=== PATIENT | male | born 1985 | race African-American/Black ===

== ENCOUNTER → 2016-09-08 | Outpatient (REF) | payer OTHER | LOC: M SFHCLERA 16:54 | PROVIDERS: ATTEND Family Medicine | DX: N45.1 Epididymitis (principal) ==

== ENCOUNTER → 2016-10-07 | Outpatient (CLI) | payer OTHER ==
--- NOTE | 2016-10-08 06:00 | REP ---
Clinical: Testicular pain. Technique: Medley scale and color Doppler evaluation using linear and curved array transducer with color Doppler evaluation. Findings: The testicles and epididymi are relatively normal in contour, size, echogenicity, vascularity and overall appearance/contour. There is no evidence for intratesticular mass lesion, infectious/inflammatory process, with torsion. No obvious hydroceles or varicoceles are identified. Right testicle measures 4.2 x 2.1 x 3.0 cm. Left testicle measures 4.2 x 2.2 x 3.0 cm. Impression: Normal scrotal ultrasound. Signed by Maik Anand MD 10/08/2016 05:51 A
== END ==
LOC: M RAD 16:29
PROVIDERS: ATTEND Family Medicine
DX: N50.819 Testicular pain, unspecified (principal)

== ENCOUNTER 2016-10-21 11:07 | Emergency (ER) | payer OTHER ==
[~2016-10-21] VITALS: Ht 185.4 cm; Wt 91.2 kg
[2016-10-21] MEDS ORDERED: ADV250INH INH (11:14)
[2016-10-21] MEDS ORDERED: ZOFR20TA PO (11:14)
[2016-10-21] MEDS ORDERED: MORPHINE 4 MG/ML 1ML SYRINGE IV ONE (12:30)
[2016-10-21] MEDS ORDERED: NS 1,000 ML IV ONE (12:30)
[2016-10-21] MEDS ORDERED: ONDANSETRON 4MG/2ML VIAL (J2405) IV ONE (12:30)
[2016-10-21 13:59] LABS: ALBUMIN 3.8 GM/DL (3.2-5.2); ALBUMIN/GLOBULIN RATIO 0.95 (1.00-1.93); ALKALINE PHOSPHATASE 79 U/L (45-117); ALT/SGPT 28 U/L (12-78); AMYLASE 61 U/L (25-115); ANION GAP 4 MEQ/L (8-16); AST/SGOT 19 U/L (15-37); BILIRUBIN,TOTAL 0.3 MG/DL (0.2-1.0); BLOOD UREA NITROGEN 12 MG/DL (7-18); CARBON DIOXIDE LEVEL 30 MEQ/L (21-32); CHLORIDE LEVEL 106 MEQ/L (98-107); CREATININE FOR GFR 0.95 MG/DL (0.70-1.30); GLOMERULAR FILTRATION RATE > 60.0 (>60); GLUCOSE, FASTING 84 MG/DL (70-105); POTASSIUM SERUM 4.1 MEQ/L (3.5-5.1); SODIUM LEVEL 140 MEQ/L (136-145); TOTAL PROTEIN 7.8 GM/DL (6.4-8.2)
[2016-10-21] MEDS ORDERED: ISOVUE-370 76% 100ML VIAL (Q9967) As Ordered ONE (14:02)
[2016-10-21 14:04] LABS: BASO % 0.4 % (0.0-1.0); EOS # 0.3 K/mm3 (0.0-0.50); EOS % 3.2 % (0.0-3.0); LARGE UNSTAINED CELL # 0.2 K/mm3 (0.0-0.4); LARGE UNSTAINED CELL % 1.9 % (0.0-4.0); LYMPH # 2.4 K/mm3 (1.5-4.5); LYMPH % 29.6 % (24.0-44.0); MEAN CORPUSCULAR HEMOGLOBIN 26.8 pg (27.0-33.0); MEAN CORPUSCULAR HGB CONC 33.2 g/dl (32.0-36.5); MEAN CORPUSCULAR VOLUME 80.7 fl (80.0-96.0); MONO # 0.4 K/mm3 (0.0-0.8); MONO % 4.5 % (0.0-5.0); NEUTROPHILS # 4.9 K/mm3 (1.8-7.7); NEUTROPHILS % 60.4 % (36.0-66.0); PLATELET COUNT, AUTOMATED 191 k/mm3 (150-450); RED CELL DISTRIBUTION WIDTH 13.1 % (11.5-14.5); WHITE BLOOD COUNT 8.1 K/mm3 (4.0-10.0)
--- NOTE | 2016-10-21 14:29 | REP ---
Clinical: Acute diarrhea and abdominal pain. Technique: Axial contrast enhanced images from the lung bases to the pubic symphysis using 100 ml Isovue 370 intravenous contrast material with coronal and sagittal re-formations. Findings: Lung bases are clear. Visualized heart and pericardium normal. Liver, spleen, pancreas, gallbladder, bilateral adrenal glands and kidneys are normal. The enteric system is without obstruction or acute inflammatory process. Evidence for prior appendectomy. Pelvis demonstrates normal bladder and age appropriate prostate/seminal vesicles. Scattered sigmoid diverticula noted without acute diverticulitis. No ascites. No free air. No adenopathy. Vasculature is normal. Musculoskeletal structures are intact. Impression: No acute intra-abdominal or pelvic pathology appreciated. Signed by Maik Anand MD 10/21/2016 02:20 P
[2016-10-21] MEDS ORDERED: BENT10CA PO (14:47)
[2016-10-21] MEDS ORDERED: PROT1TAB2 PO (14:47)
[2016-10-21] MEDS ORDERED: ZOFR4TAB3 PO (14:47)
[2016-10-21] MEDS ORDERED: PERC5TAB6 PO (14:55)
[2016-10-21 14:57] VITALS: BP 142/72
== END 2016-10-21 15:04 | disposition home or self-care (01) ==
LOC: M ED 12:05
DX: R10.31 Right lower quadrant pain (principal); R10.819 Abdominal tenderness, unspecified site; R11.2 Nausea with vomiting, unspecified; R19.7 Diarrhea, unspecified; K50.90 Crohn's disease, unspecified, without complications
CPT/HCPCS: 74177; 80053; 82150; 83690; 85025; 96374; 96375; 99283; J2405; Q9967

== ENCOUNTER → 2016-11-16 | Outpatient (CLI) | payer OTHER ==
[~2016-11-16] MED LIST: ADV250INH INH; BENT10CA PO; PERC5TAB6 PO; PROT1TAB2 PO; ZOFR20TA PO; ZOFR4TAB3 PO
== END ==
LOC: M WUC 12:23
PROVIDERS: ATTEND Physician Assistant
DX: S60.011A Contusion of right thumb without damage to nail, initial encounter (principal); W18.30XA Fall on same level, unspecified, initial encounter; Y92.009 Unspecified place in unspecified non-institutional (private) residence as the place of occurrence of the external cause

== ENCOUNTER → 2017-01-06 | Outpatient (REF) | payer OTHER ==
[~2017-01-06] MED LIST changes: +PERC5TAB12 PO; -PERC5TAB6 PO
== END ==
LOC: M LAB REF 14:23
PROVIDERS: ATTEND Internal Medicine Gastroenterology
DX: K50.818 Crohn's disease of both small and large intestine with other complication (principal)

== ENCOUNTER → 2017-01-07 | Outpatient (CLI) | payer OTHER ==
[~2017-01-07] MED LIST changes: +E-Z-PAQUE 96% w/w SUSP 176GM BTL As Ordered ONE
--- NOTE | 2017-01-07 17:12 | REP ---
Small bowel follow-through The procedure was performed under the direct supervision of Dr. Medley. The images were reviewed with Dr. Medley. The counselor aid film shows no organomegaly or pathological masses. The intestinal gas pattern is nonspecific. There are surgical sutures noted in the mid abdomen and right abdomen consistent with the patient's history of colon resection. Liquid barium was administered and the barium column was followed through the small bowel to the level of the terminal ileum. Small bowel transit time is approximately 2 hours . During fluoroscopy gentle palpation shows all loops are freely movable and pliable. There are no fixed or angulated loops. The small bowel mucosal pattern is normal in course and caliber. There is no transition to suggest a partial small bowel obstruction. Spot filming of the distal small bowel and ileocolic anastomoses are unremarkable. There is no evidence of stricture or obstruction. Impression: Postsurgical changes consistent with the patient's history of colon resection. Otherwise Small bowel follow-through examination within normal limits. 1 minute and 17 seconds of fluoro time was utilized for this procedure. Reviewed by RANDY Arciniega 01/07/2017 04:39 PSigned by Elio Medley MD 01/07/2017 04:59 P
== END ==
LOC: M RAD 08:20
PROVIDERS: ATTEND Internal Medicine Gastroenterology
DX: K50.018 Crohn's disease of small intestine with other complication (principal)

== ENCOUNTER 2017-03-11 13:04 | Outpatient (CLI) | payer OTHER ==
[~2017-03-11] VITALS: Ht 182.9 cm; Wt 97.5 kg
[~2017-03-11 13:04] MED LIST changes: -E-Z-PAQUE 96% w/w SUSP 176GM BTL As Ordered ONE
[2017-03-11] MEDS ORDERED: NS 1,000 ML IV ONE (14:15)
[2017-03-11] MEDS ORDERED: PROPOFOL 200 MG/20 ML VIAL As Ordered ONE (15:12)
--- NOTE | 2017-03-11 15:31 | ROOR ---
Patient Name: Trev Jacobs Procedure Date: 03/11/2017 2:45 PM Date of : 1985 Age: 31 Room: [facility] Gender: Male Note Status: Finalized Procedure: Upper GI endoscopy Indications: Crohn's disease Providers: Matt Wright MD Referring MD: Dudley Granado MD Requesting Provider: Medicines: Monitored Anesthesia Care Complications: No immediate complications. Procedure: Pre-Anesthesia Assessment: - Prior to the procedure, a History and Physical was performed, and patient medications and allergies were reviewed. The patient is competent. The risks and benefits of the procedure and the sedation options and risks were discussed with the patient. All questions were answered and informed consent was obtained. Patient identification and proposed procedure were verified by the physician, the nurse and the supervising nurse in the procedure room. Mental Status Examination: alert and oriented. Airway Examination: normal oropharyngeal airway and neck mobility. Respiratory Examination: clear to auscultation. CV Examination: normal. Prophylactic Antibiotics: The patient does not require prophylactic antibiotics. Prior Anticoagulants: The patient has taken no previous anticoagulant or antiplatelet agents. ASA Grade Assessment: II - A patient with mild systemic disease. After reviewing the risks and benefits, the patient was deemed in satisfactory condition to undergo the procedure. The anesthesia plan was to use monitored anesthesia care (MAC). Immediately prior to administration of medications, the patient was re-assessed for adequacy to receive sedatives. The heart rate, respiratory rate, oxygen saturations, blood pressure, adequacy of pulmonary ventilation, and response to care were monitored throughout the procedure. The physical status of the patient was re-assessed after the procedure. The Endoscope was introduced through the mouth, and advanced to the second part of duodenum. The upper GI endoscopy was accomplished without difficulty. The patient tolerated the procedure well. Findings: The examined esophagus was normal. Diffuse minimal inflammation characterized by erythema and granularity was found in the gastric antrum. Biopsies were taken with a cold forceps for Helicobacter pylori testing. Verification of patient identification for the specimen was done by the physician and nurse using the patient's name, date and medical record number. Estimated blood loss was minimal. The duodenal bulb, second portion of the duodenum and third portion of the duodenum were normal. Biopsies were taken with a cold forceps for histology. Impression: - Normal esophagus. - Gastritis. Biopsied. - Normal duodenal bulb, second portion of the duodenum and third portion of the duodenum. Biopsied. Recommendation: - Patient has a contact number available for emergencies. The signs and symptoms of potential delayed complications were discussed with the patient. Return to normal activities tomorrow. Written discharge instructions were provided to the patient. - Resume previous diet. - Continue present medications. - Take mesalamine ( pentasa) 1gm tablet 4 times a day. ( prescription sent to pharmacy) - Await pathology results. - Return to GI clinic as previously scheduled on 03/17/2017 at 11:15AM. - Return to primary care physician. Matt Wright MD Matt Wright MD 03/11/2017 3:31:34 PM This report has been signed electronically. Number of Addenda: 0 Note Initiated On: 03/11/2017 2:45 PM Estimated Blood Loss: Estimated blood loss was minimal.
[2017-03-11 15:51] VITALS: BP 114/77
--- NOTE | 2017-03-11 16:20 | ROOR ---
Patient Name: Trev Jacobs Procedure Date: 03/11/2017 2:46 PM Date of : 1985 Age: 31 Room: [facility] Gender: Male Note Status: Finalized Procedure: Colonoscopy Indications: Follow-up of Crohn's disease of the small bowel Providers: Matt Wright MD Referring MD: Dudley Granado MD Requesting Provider: Medicines: Monitored Anesthesia Care Complications: No immediate complications. Procedure: Pre-Anesthesia Assessment: - Prior to the procedure, a History and Physical was performed, and patient medications and allergies were reviewed. The patient is competent. The risks and benefits of the procedure and the sedation options and risks were discussed with the patient. All questions were answered and informed consent was obtained. Patient identification and proposed procedure were verified by the physician, the nurse and the sock liner in the procedure room. Mental Status Examination: alert and oriented. Airway Examination: normal oropharyngeal airway and neck mobility. Respiratory Examination: clear to auscultation. CV Examination: normal. Prophylactic Antibiotics: The patient does not require prophylactic antibiotics. Prior Anticoagulants: The patient has taken no previous anticoagulant or antiplatelet agents. ASA Grade Assessment: II - A patient with mild systemic disease. After reviewing the risks and benefits, the patient was deemed in satisfactory condition to undergo the procedure. The anesthesia plan was to use monitored anesthesia care (MAC). Immediately prior to administration of medications, the patient was re-assessed for adequacy to receive sedatives. The heart rate, respiratory rate, oxygen saturations, blood pressure, adequacy of pulmonary ventilation, and response to care were monitored throughout the procedure. The physical status of the patient was re-assessed after the procedure. The Colonoscope was introduced through the anus and advanced to the terminal ileum, with identification of the appendiceal orifice and IC valve. The colonoscopy was performed without difficulty. The patient tolerated the procedure well. Findings: The perianal and digital rectal examinations were normal. Three sessile polyps were found in the rectum. The polyps were 3 to 6 mm in size. These polyps were removed with a cold biopsy forceps. Resection and retrieval were complete. Verification of patient identification for the specimen was done by the physician and nurse using the patient's name, date and medical record number. Estimated blood loss was minimal. A few hyperplastic polyps were found in the rectum. The polyps were 2 to 3 mm in size. There was evidence of a prior functional end-to-end ileo-colonic anastomosis in the ascending colon. This was patent and was characterized by edema, friable mucosa, inflammation and ulceration. The anastomosis was traversed. The ileum, 10 cm from the ileocecal anastomosis contained a few eight mm ulcers. No bleeding was present. Biopsies were taken with a cold forceps for histology. The retroflexed view of the distal rectum and anal verge was normal and showed no anal or rectal abnormalities. Impression: - Three 3 to 6 mm polyps in the rectum, removed with a cold biopsy forceps. Resected and retrieved. - A few 2 to 3 mm polyps in the rectum. - Patent functional end-to-end ileo-colonic anastomosis, characterized by edema, friable mucosa, inflammation and ulceration. - A few ulcers ileum, 10 cm from the ileocecal anastomosis. Biopsied. - The distal rectum and anal verge are normal on retroflexion view. Recommendation: - Patient has a contact number available for emergencies. The signs and symptoms of potential delayed complications were discussed with the patient. Return to normal activities tomorrow. Written discharge instructions were provided to the patient. - Resume previous diet. - Continue present medications. - Take mesalamine ( pentasa) 1gm tablet 4 times a day. ( prescription sent to pharmacy) - Await pathology results. - Repeat colonoscopy in 1 year to check healing. - Return to GI clinic as previously scheduled on 03/17/2017 at 11:15 AM. - Lab tests ordered for Quantiferon and hepatitis B testing - to be done prior to clinic visit. - Return to primary care physician. Matt Wright MD Matt Wright MD 03/11/2017 4:20:37 PM This report has been signed electronically. Number of Addenda: 0 Note Initiated On: 03/11/2017 2:46 PM Estimated Blood Loss: Estimated blood loss was minimal.
== END 2017-03-11 16:16 | disposition home or self-care (01) ==
LOC: M OPP 13:04
PROVIDERS: ATTEND Internal Medicine Gastroenterology
DX: K50.00 Crohn's disease of small intestine without complications (principal); K63.5 Polyp of colon; K63.3 Ulcer of intestine; Z98.0 Intestinal bypass and anastomosis status; K29.70 Gastritis, unspecified, without bleeding; J45.909 Unspecified asthma, uncomplicated; Z86.19 Personal history of other infectious and parasitic diseases; Z87.19 Personal history of other diseases of the digestive system; Z91.018 Allergy to other foods; Z79.899 Other long term (current) drug therapy

== ENCOUNTER → 2017-07-04 | Outpatient (REF) | payer OTHER | LOC: M SFHCLERA 15:32 | DX: J02.9 Acute pharyngitis, unspecified (principal) ==

== ENCOUNTER 2017-07-14 18:05 | Emergency (ER) | payer OTHER ==
[2017-07-14] MEDS: IBUPROFEN 600 MG TAB PO (19:09)
== END 2017-07-14 19:33 | disposition home or self-care (01) ==
LOC: M ED 18:05
DX: S43.401A Unspecified sprain of right shoulder joint, initial encounter (principal); X50.0XXA Overexertion from strenuous movement or load, initial encounter; Y92.89 Other specified places as the place of occurrence of the external cause; J45.909 Unspecified asthma, uncomplicated; K50.90 Crohn's disease, unspecified, without complications; Z91.018 Allergy to other foods; Z79.899 Other long term (current) drug therapy
CPT/HCPCS: 99284

== ENCOUNTER 2018-03-19 22:27 | Emergency (ER) | payer OTHER ==
[2018-03-20 00:32] LABS: KETONE, URINE AUTO RFX TRACE mg/dL (NEGATIVE); MUCUS, URINE RFX SMALL (NEGATIVE); RBC, URINE AUTO RFX TNTC /HPF (0-3); SPECIFIC GRAVITY UR AUTO RFX 1.027 (1.002-1.035); SQUAM EPITHELIAL CELL UR AURFX 0 /HPF (0-6)
[2018-03-20] MEDS: ACETAMINOPHEN 325 MG TAB PO (00:36)
[2018-03-20 00:49] LABS: LEUKOCYTE ESTERASE UR AUTO RFX 2+ (NEGATIVE); NITRITE, URINE AUTO RFX POSITIVE (NEGATIVE); WBC, URINE AUTO RFX TNTC /HPF (0-3)
[2018-03-20] MEDS: PHENAZOPYRIDINE 100 MG TAB PO (01:00)
[2018-03-20] MEDS: CIPROFLOXACIN 500 MG TAB PO (01:00)
[2018-03-20 01:53] LABS: CHLAMYDIA DNA AMPLIFICATION NEGATIVE (NEGATIVE); GC DNA AMPLIFICATION NEGATIVE (NEGATIVE)
== END 2018-03-20 01:07 | disposition home or self-care (01) ==
LOC: M ED 03-20 01:07
DX: N30.91 Cystitis, unspecified with hematuria (principal); J45.909 Unspecified asthma, uncomplicated; Z87.19 Personal history of other diseases of the digestive system; Z91.018 Allergy to other foods
CPT/HCPCS: 76870

== ENCOUNTER → 2018-03-29 | Outpatient (REF) | payer OTHER ==
[2018-03-29 14:17] LABS: APPEARANCE, URINE CLEAR (CLEAR); BACTERIA, URINE AUTO NEGATIVE (NEGATIVE); BILIRUBIN, URINE AUTO NEGATIVE (NEGATIVE); BLOOD, URINE BLOOD NEGATIVE (NEGATIVE); COLOR, URINE YELLOW (YELLOW); GLUCOSE, URINE (UA) AUTO NEGATIVE (NEGATIVE); KETONE, URINE AUTO NEGATIVE (NEGATIVE); LEUKOCYTE ESTERASE, URINE AUTO NEGATIVE (NEGATIVE); MUCUS, URINE SMALL (NEGATIVE); NITRITE, URINE AUTO NEGATIVE (NEGATIVE); PROTEIN, URINE AUTO NEGATIVE (NEGATIVE); RBC, URINE AUTO 0 /HPF (0-3); SPECIFIC GRAVITY URINE AUTO 1.023 (1.002-1.035); SQUAMOUS EPITHELIAL CELL UR AU 0 /HPF (0-6); UROBILINOGEN, URINE AUTO 0.2 mg/dL (0.0-2.0); WBC, URINE AUTO 0 /HPF (0-3)
== END ==
LOC: M SMT 13:56
DX: N39.0 Urinary tract infection, site not specified (principal)

== ENCOUNTER → 2018-06-01 | Outpatient (REF) | payer OTHER ==
[~2018-06-01] MED LIST changes: +AMOX500C; +CIPR-249 PO; +IBUP-1022 PO; +PENT500C; +PYRI1TAB5 PO; -ZOFR20TA PO; +ZOFR4TAB14 PO; +ZOFR4TAB16 PO; -ZOFR4TAB3 PO
== END ==
LOC: M SFHCLERA 09:36
PROVIDERS: ATTEND Family Medicine
DX: N46.9 Male infertility, unspecified (principal); Z53.8 Procedure and treatment not carried out for other reasons

== ENCOUNTER → 2018-06-02 | Outpatient (REF) | payer OTHER ==
[2018-06-02 10:14] LABS: SEMEN APPEARANCE OPAQUE (OPAQUE); SEMEN VISCOSITY LIQUID (LIQUID); SEMEN VOLUME 2.5 ml (4.0-5.0); SPERM CONCENTRATION 31.6 M/ml (>=15.0); WBC CONCENTRATION <=1 M/ml (<=1 M/ml)
== END ==
LOC: M LAB 09:56
PROVIDERS: ATTEND Family Medicine
DX: N46.9 Male infertility, unspecified (principal)

== ENCOUNTER → 2018-06-22 | Outpatient (CLI) | payer OTHER ==
--- NOTE | 2018-06-22 21:30 | REP ---
Clinical: Renal lesion. Correlation: CT dated 06/01/2018. Technique: Time haddad scale ultrasound examination using curved array transducer. Findings: The right kidney is relatively normal in contour, size, echogenicity, and reniform shape without evidence for hydronephrosis, nephrolithiasis, cystic or renal mass lesion. The hypodense area noted on noncontrast CT does not correlate with mass lesion or abnormality. Right kidney measures 11.5 x 6.4 x 5.1 cm. The left kidney is normal in contour, size, echogenicity, and reniform shape without hydronephrosis, nephrolithiasis, cystic or renal mass lesion and measures 11.5 x 6.2 x 4.8 cm. The bladder is unremarkable and without wall thickening or mass lesion. Prevoid bladder measures 194 ml. Postvoid bladder measures 16.4 ml. Postvoid residual equals 8.5%. Impression: Normal renal and bladder ultrasound. Hypodense area in the right kidney noted on recent CT does not correspond to pathology. Electronically Signed by Maik Anand MD 06/22/2018 09:21 P
== END ==
LOC: M RAD 12:40
PROVIDERS: ATTEND Nurse Practitioner Family
DX: N28.9 Disorder of kidney and ureter, unspecified (principal)

== ENCOUNTER 2018-07-18 18:22 | Emergency (ER) | payer OTHER ==
[~2018-07-18] VITALS: Ht 185.4 cm; Wt 220.0 kg
[2018-07-18 18:23] VITALS: BP 114/87
[2018-07-18] MEDS ORDERED: ADVA115A (21:29)
[2018-07-18] MEDS ORDERED: PROAAER10 (21:29)
[2018-07-18] MEDS ORDERED: PERC5TAB12 PO (22:45)
[2018-07-18] MEDS ORDERED: OXYCODONE/APAP 5MG/325MG(BULK FOR ED) 1 TABLET PO ONE (23:00)
--- NOTE | 2018-07-19 02:15 | REP ---
Clinical: Trauma. Left hip pain. Technique: Neutral and frog lateral views of the left hip. Findings: No acute fracture or dislocation. Skeletal structures, joint spaces, and surrounding soft tissues are normal. Impression: No acute fracture or dislocation. Electronically Signed by Maik Anand MD 07/19/2018 02:06 A
== END 2018-07-18 23:03 | disposition home or self-care (01) ==
LOC: M ED 18:22
DX: M25.552 Pain in left hip (principal); J45.909 Unspecified asthma, uncomplicated; K50.90 Crohn's disease, unspecified, without complications; Z98.890 Other specified postprocedural states; Z91.018 Allergy to other foods; Z79.51 Long term (current) use of inhaled steroids